=== PATIENT | female | born 1995 ===

== ENCOUNTER 2024-11-02 16:03 | Emergency (ER) | payer OTHER ==
[~2024-11-02] VITALS: Ht 172.7 cm; Wt 63.5 kg
== END 2024-11-02 19:39 | disposition home or self-care (01) ==
LOC: ER 16:03
DX: S82.64XA Nondisplaced fracture of lateral malleolus of right fibula, initial encounter for closed fracture (principal); W01.0XXA Fall on same level from slipping, tripping and stumbling without subsequent striking against object, initial encounter
CPT/HCPCS: 29515; 73610; 99283-25